=== PATIENT | male | born 1960 | race Caucasian/White ===

== ENCOUNTER → 2020-12-17 09:44 | Outpatient (CLI) | payer OTHER, MEDICAID, SELFPAY ==
--- NOTE | 2020-12-17 | DI.US.S_ITS ---
PROCEDURE: US EXTREMELY NONVASC UPPER RT INDICATIONS: SUPERFICIAL FOREIGN BODY OF RIGHT RING FINGER TECHNIQUE: Real-time scanning was performed of the right 4th finger, with image documentation. COMPARISON: None. FINDINGS: Focused ultrasound examination of lateral aspect of right 4th finger shows 7 mm linear hyperechoic structure within subcutaneous soft tissue with surrounding soft tissue swelling and edema. No soft tissue mass or fluid collection is noted. IMPRESSION: Likely linear foreign body within 4th fingers subcutaneous soft tissue with surrounding soft tissue swelling and edema. Dictated by: Rigo Devi M.D. on 12/17/2020 at 11:55 Approved by: Rigo Devi M.D. on 12/17/2020 at 11:56
== END ==
PROVIDERS: Family Provider Nurse Practitioner; PCP Nurse Practitioner; Referring Provider Orthopaedic Surgery; Visit Provider Orthopaedic Surgery
DX: S60.454A Superficial foreign body of right ring finger, initial encounter (principal); W45.8XXA Other foreign body or object entering through skin, initial encounter
CPT/HCPCS: 76882